=== PATIENT | female | born 1990 | race American Indian/Alaskan Native ===

== ENCOUNTER 2021-08-10 08:16 | Outpatient (CLI) | payer SELFPAY ==
[2021-08-10 11:18] LABS: Bilirubin,Urine NEG (Negative); Blood,Urine NEG (Negative); Color,Urine Straw (Yellow); Mucus,Urine FEW /HPF; Protein,Urine <15 mg/dL mg/dL (Negative); RBC,Urine < 1.0 /HPF (0.0-6.0); Urobilinogen,Urine < 2.0 mg/dL (<2.0); WBC,Urine < 1.0 /HPF (0.0-6.0)
[2021-08-10 12:45] VITALS: BP 100/62
[2021-08-10 13:02] LABS: Basophils # (Auto) 0.1 K/mm3 (0.0-0.1); Eosinophils % (Auto) 0.5 % (0.0-4.3); Hematocrit 34.1 % (30.3-42.9); Hemoglobin 11.3 gm/dl (10.1-14.3); Lymphocytes # (Auto) 2.2 K/mm3 (1.2-5.4); Lymphocytes % (Auto) 29.5 % (13.4-35.0); Mean Corpuscular HGB Conc 33 % (30-34); Mean Corpuscular Volume 86 fl (79-97); Monocytes # (Auto) 0.7 K/mm3 (0.0-0.8); Monocytes % (Auto) 9.6 % (0.0-7.3); Platelet Count 266 K/mm3 (140-440); Red Blood Count 3.98 M/mm3 (3.65-5.03); Red Cell Distribution Width 13.1 % (13.2-15.2)
--- NOTE | 2021-08-10 13:09 | Ultrasound Report ---
ULTRASOUND BIOPHYSICAL PROFILE OBSTETRIC ULTRASOUND, COMPLETE INDICATION: no care. COMPARISON: None available. FINDINGS: breathing movement = 2 Gross body movement = 2 tone = 2 Qualitative amniotic fluid volume = 2 Total biophysical score = 8/8 Amniotic fluid index is 17.3 cm. Presentation is Cephalic. heart rate is 147 beats per minute. bladder, diaphragm, heart, stomach, three-vessel cord, kidneys, and included intracranial struc tures are unremarkable. Spine and cord insertion were not well. Visualized measurements are as follows: Biparietal diameter 8.4 cm, 33 weeks 5 days Head circumference 30.6 cm, 34 weeks 1 day Abdominal circumference 29.4 cm, 33 weeks 3 days Femur length 7.1 cm, 36 weeks 1 day Estimated weight is 2396 g. No placental abnormalities are seen. There is a grade 1 anterior placenta. IMPRESSION: 1. biophysical profile = 11/06 2. Single viable intrauterine currently in vertex position with a estimated w eight of 2396 g (sonographic gestational age 34 weeks 3 days). Amniotic fluid index is within normal limits. Signer Name: Gerald Parry MD Signed: 08/10/2021 1:04 PM Workstation Name: [id number]
[2021-08-10 13:26] LABS: HCG,Quantitative 3332 mIU/mL (0-4); Hepatitis C Virus Antibody Non-Reactive (NonReactive)
== END 2021-08-10 15:00 | disposition home or self-care (01) ==
LOC: TRG 08:16 → APU 08:29 → TRG 15:00
PROVIDERS: ATTEND Obstetrics & Gynecology
DX: O26.893 Other specified pregnancy related conditions, third trimester (principal); R10.9 Unspecified abdominal pain; R51.9 Headache, unspecified; Z3A.37 37 weeks gestation of pregnancy
CPT/HCPCS: 36415; 59025; 76805; 76819; 81001; 84702; 85025; 86592; 86706; 86762; 86803; 87116; 87210; 87591; 87806

== ENCOUNTER 2021-08-11 13:23 | Inpatient (IN) | payer SELFPAY ==
[2021-08-11] MEDS ORDERED: ACETAMINOPHEN 325 MG TAB PO PRN (16:47)
[2021-08-11] MEDS ORDERED: ONDANSETRON 4 MG/2 ML INJ IV PRN (16:47)
[2021-08-11] MEDS ORDERED: miSOPROStol 200 MCG TAB PR PRN (16:47)
[2021-08-11] MEDS ORDERED: ePHEDrine SULFATE 50 MG/1 ML INJ IV PRN (16:47)
[2021-08-11] MEDS ORDERED: TERBUTALINE 1 MG/1 ML INJ SUB-Q PRN (16:47)
[2021-08-11] MEDS ORDERED: METHYLERGONOVINE MALEATE 0.2 MG/ML VIAL IM PRN (16:47)
[2021-08-11] MEDS ORDERED: LIDOCAINE (2%) 20 MG/1 ML VIAL 20 ML MDV INFILTRATI ONE (16:47)
[2021-08-11] MEDS ORDERED: BUTORPHANOL 2 MG/1 ML INJ IV PRN ×2 (16:47)
[2021-08-11] MEDS ORDERED: MINERAL OIL 30 ML ORAL LIQD PO PRN (16:47)
[2021-08-11] MEDS ORDERED: fentaNYL 100 MCG/2 ML INJ IV PRN (16:47)
[2021-08-11] MEDS ORDERED: AMPICILLIN/NS 2 GM/100 ML 2 GM/100 ML BAG IV ONE (16:47)
[2021-08-11] MEDS ORDERED: CARBOPROST TROMETHAMINE 250 MCG/1 ML INJ IM PRN (16:47)
[2021-08-11] MEDS ORDERED: LOPERAMIDE 2 MG CAP PO PRN (16:47)
[2021-08-11] MEDS ORDERED: NalbUPHINE 10 MG/1 ML INJ IV PRN (16:47)
[2021-08-11] MEDS ORDERED: OXYTOCIN 10 UNIT/1 ML INJ IM PRN (16:47)
[2021-08-11] MEDS ORDERED: OXYTOCIN DRIP 30 UNITS/500 ML BAG IV SCH ×2 (17:00)
[2021-08-11] MEDS ORDERED: LACTATED RINGERS 1,000 ML IV SCH (17:00)
--- NOTE | 2021-08-11 17:11 | History and Physical Report ---
History of Present Illness Date of examination: 08/11/21 Date of admission: 08/11/21 Chief complaint: Contractions; possible leaking of fluid from vagina. History of present illness: Was just notified of patient in triage; originally patient had been registered under a different provider/practice. 30 year old presents to L&D with complaint of contractions since yesterday. Reports possible leaking of fluid since 08:00 today. Denies vaginal bleeding. Patient states she receives care at [facility] office; made only one visit at [facility] and states it was yesterday. records are not available but they have been requested. LMP 11/24/20. EDC 08/31/21. Patient reports history of 2 vaginal births in the past. Reports uncomplicated except for one visit yesterday. Past History - Obstetrical History : 3 Medications and Allergies Allergies Allergy/AdvReac Type Severity Reaction Status Date / Time No Known Allergies Allergy Unverified 08/10/21 10:38 Active Meds: Active Medications Acetaminophen (Acetaminophen 325 Mg Tab) 650 mg PO Q4H PRN PRN Reason: Pain, Mild (1-3) Butorphanol Tartrate (Butorphanol 2 Mg/1 Ml Inj) 1 mg IV Q2H PRN PRN Reason: Pain, Moderate(4-6) LABOR PAIN Butorphanol Tartrate (Butorphanol 2 Mg/1 Ml Inj) 2 mg IV Q2H PRN PRN Reason: Pain , Severe (7-10) Carboprost Tromethamine (Carboprost Tromethamine 250 Mcg/1 Ml Inj) 250 mcg IM ONCE PRN PRN Reason: Uterine Bleeding Ephedrine Sulfate (Ephedrine Sulfate 50 Mg/1 Ml Inj) 10 mg IV Q2M PRN PRN Reason: Hypotension Fentanyl (Fentanyl 100 Mcg/2 Ml Inj) 100 mcg IV Q2H PRN PRN Reason: Pain,Severe (7-10) LABOR PAIN Oxytocin/Sodium Chloride (Pitocin/Ns 30 Unit/500ml) 30 units in 500 mls @ 2 ml s/hr IV TITR NANCY; Protocol Lactated Ringer's (Lactated Ringers) 1,000 mls @ 125 mls/hr IV DIRECT NANCY Oxytocin/Sodium Chloride (Pitocin/Ns 30 Unit/500ml) 30 units in 500 mls @ 40 mls/hr IV TITR NANCY; Protocol Ampicillin Sodium (Ampicillin/Ns 1 Gm/50 Ml) 1 gm in 50 mls @ 100 mls/hr IV Q4H NANCY; Protocol Ampicillin Sodium (Ampicillin/Ns 2 Gm/100 Ml) 2 gm in 100 mls @ 100 mls/hr IV ONCE ONE; Protocol Stop: 08/11/21 17:46 Loperamide HCl (Loperamide 2 Mg Cap) 2 mg PO ONCE PRN PRN Reason: give with Hemabate Methylergonovine Maleate (Methylergonovine Maleate 0.2 Mg/Ml Vial) 0.2 mg IM ONCE PRN PRN Reason: Uterine Bleeding Mineral Oil (Mineral Oil 30 Ml Oral Liqd) 30 ml PO QHS PRN PRN Reason: Constipation Misoprostol (Misoprostol 200 Mcg Tab) 800 mcg LA ONCE PRN PRN Reason: Uterine Bleeding Nalbuphine HCl (Nalbuphine 10 Mg/1 Ml Inj) 10 mg IV Q2H PRN PRN Reason: Pain, Moderate (4-6) Ondansetron HCl (Ondansetron 4 Mg/2 Ml Inj) 4 mg IV Q8H PRN PRN Reason: Nausea And Vomiting Oxytocin (Oxytocin 10 Unit/1 Ml Inj) 10 unit IM ONCE PRN PRN Reason: Uterine Bleeding Terbutaline Sulfate (Terbutaline 1 Mg/1 Ml Inj) 0.25 mg SUB-Q ONCE PRN PRN Reason: Hyperstimulation/Hypertonicity - Vital Signs Vital signs: Vital Signs Pulse Pulse Ox 91 H 100 08/11/21 15:07 08/11/21 15:07 Temp Pulse Resp BP Pulse Ox 86 94/62 100 08/11/21 17:02 08/11/21 16:48 08/11/21 17:02 Results All other labs normal.
[2021-08-11] MEDS ORDERED: BETAMET ACET/BETAMET NA PH 6 MG/ML INJ 5 ML MDV IM SCH (18:00)
[2021-08-11 18:28] LABS: Basophils % (Auto) 0.5 % (0.0-1.8); Eosinophils # (Auto) 0.1 K/mm3 (0.0-0.4); Eosinophils % (Auto) 0.8 % (0.0-4.3); Hematocrit 31.8 % (30.3-42.9); Hemoglobin 10.1 gm/dl (10.1-14.3); Lymphocytes # (Auto) 2.1 K/mm3 (1.2-5.4); Lymphocytes % (Auto) 30.3 % (13.4-35.0); Mean Corpuscular HGB Conc 32 % (30-34); Mean Corpuscular Volume 88 fl (79-97); Monocytes # (Auto) 0.8 K/mm3 (0.0-0.8); Platelet Count 246 K/mm3 (140-440); Red Blood Count 3.63 M/mm3 (3.65-5.03); Red Cell Distribution Width 13.3 % (13.2-15.2)
--- NOTE | 2021-08-11 20:35 | Ultrasound Report ---
ULTRASOUND BIOPHYSICAL PROFILE INDICATION: EDC/EGA, BIN, location/integrity placenta, EFW, pr. COMPARISON: 08/10/2021 FINDINGS: BREATHING MOVEMENT = 2 GROSS BODY MOVEMENT = 2 TONE = 2 QUALITATIVE AMNIOTIC FLUID VOLUME = 0 TOTAL BIOPHYSICAL SCORE = 6/8 AMNIOTIC FLUID INDEX (cm) = 1.6 PRESENTATION: Cephalic. HEART RATE (beats per minute): 148 IMPRESSION: 1. biophysical profile = 09/06 2. Oligohydramnios, new since yesterday Signer Name: Chaitanya Hutchinson MD Signed: 08/11/2021 8:30 PM Workstation Name: [id number]
--- NOTE | 2021-08-11 20:37 | Ultrasound Report ---
ULTRASOUND OBSTETRIC INDICATION / CLINICAL INFORMATION: EDC/EGA, BIN, location/integrity placenta, EFW, pr. Clinical Gestational Age (GA): 37.2 TECHNIQUE: Transabdominal. COMPARISON: 08/10/2021 OB ultrasound FINDINGS: There is a single intrauterine . Biparietal Diameter = 8.2 cm = 32 weeks, 6 day(s). Head Circumference = 30 cm = 33 weeks, 1 day(s). Abdominal Circumference = 29.1 cm = 33 weeks, 1 day(s). Femur Length = 6.7 cm = 34 weeks, 4 day(s). Average Ultrasound Age (AUA) = 33 weeks, 3 day(s). Heart Rate: 155 beats per minute. Estimated Weight in grams (if calculated): 2208 Estimated Weight Growth Percentile (if calculated): Position: cephalic. Cervix: closed. Length in cm (if measured): Placenta: Fundal left lateral, grade 3 and free of the os. Amniotic Fluid Volume: normal Amniotic Fluid Index (BIN) in cm (if calculated): 1.6. Maternal Adnexa: No significant abnormality. IMPRESSION: 1. Single, living intrauterine with estimated sonographic age of 33 weeks, 3 day(s). 2. Oligohydramnios Signer Name: Chaitanya Hutchinson MD Signed: 08/11/2021 8:33 PM Workstation Name: [id number]
[2021-08-11] MEDS ORDERED: AMPICILLIN/NS 1 GM/50 ML 1 GM/50 ML BAG IV SCH (21:00)
--- NOTE | 2021-08-12 00:17 | History and Physical Report ---
History of Present Illness Date of examination: 08/12/21 Date of admission: 08/11/21 16:47 Chief complaint: My water broke History of present illness: Patient is a 30-year-old 2 para 1 who presents today with complaint of spontaneous rupture of membranes. By patient's own report she has a due date of August 31, 2021 which would make her 37 weeks today however ultrasound on yesterday showed a estimated gestational age of 34 weeks. Patient has had no care and is recently emigrated to this country from [facility]. She does not understand or speak Japanese, so there is a significant language barrier. There are records. Patient reports leaking of fluid since 8 AM today 08/11 Past History Past Medical History: other (Unknown ) Past Surgical History: other (Unknown) Family/Genetic History: other (Unknown) - Obstetrical History Expected Date of Delivery: 08/31/21 Actual Gestation: 37 Week(s) 2 Day(s) : 3 Number of Living Children: 1 Medications and Allergies Allergies Allergy/AdvReac Type Severity Reaction Status Date / Time No Known Allergies Allergy Unverified 08/10/21 10:38 Active Meds: Active Medications Acetaminophen (Acetaminophen 325 Mg Tab) 650 mg PO Q4H PRN PRN Reason: Pain, Mild (1-3) Betamethasone Acet/Betameth SodPhos (Betamet Acet/Betamet Na Ph 6 Mg/Ml Inj 5 Ml Mdv) 12 mg IM Q24H NANCY Stop: 08/12/21 18:01 Last Admin: 08/11/21 17:34 Dose: 12 mg Butorphanol Tartrate (Butorphanol 2 Mg/1 Ml Inj) 1 mg IV Q2H PRN PRN Reason: Pain, Moderate(4-6) LABOR PAIN Butorphanol Tartrate (Butorphanol 2 Mg/1 Ml Inj) 2 mg IV Q2H PRN PRN Reason: Pain , Severe (7-10) Carboprost Tromethamine (Carboprost Tromethamine 250 Mcg/1 Ml Inj) 250 mcg IM ONCE PRN PRN Reason: Uterine Bleeding Ephedrine Sulfate (Ephedrine Sulfate 50 Mg/1 Ml Inj) 10 mg IV Q2M PRN PRN Reason: Hypotension Fentanyl (Fentanyl 100 Mcg/2 Ml Inj) 100 mcg IV Q2H PRN PRN Reason: Pain,Severe (7-10) LABOR PAIN Oxytocin/Sodium Chloride (Pitocin/Ns 30 Unit/500ml) 30 units in 500 mls @ 2 mls/hr IV TITR NANCY; Protocol Lactated Ringer's (Lactated Ringers) 1,000 mls @ 125 mls/hr IV DIRECT NANCY Oxytocin/Sodium Chloride (Pitocin/Ns 30 Unit/500ml) 30 units in 500 mls @ 40 mls/hr IV TITR NANCY; Protocol Ampicillin Sodium (Ampicillin/Ns 1 Gm/50 Ml) 1 gm in 50 mls @ 100 mls/hr IV Q4H NANCY; Protocol Loperamide HCl (Loperamide 2 Mg Cap) 2 mg PO ONCE PRN PRN Reason: give with Hemabate Methylergonovine Maleate (Methylergonovine Maleate 0.2 Mg/Ml Vial) 0.2 mg IM ON CE PRN PRN Reason: Uterine Bleeding Mineral Oil (Mineral Oil 30 Ml Oral Liqd) 30 ml PO QHS PRN PRN Reason: Constipation Misoprostol (Misoprostol 200 Mcg Tab) 800 mcg ND ONCE PRN PRN Reason: Uterine Bleeding Nalbuphine HCl (Nalbuphine 10 Mg/1 Ml Inj) 10 mg IV Q2H PRN PRN Reason: Pain, Moderate (4-6) Ondansetron HCl (Ondansetron 4 Mg/2 Ml Inj) 4 mg IV Q8H PRN PRN Reason: Nausea And Vomiting Oxytocin (Oxytocin 10 Unit/1 Ml Inj) 10 unit IM ONCE PRN PRN Reason: Uterine Bleeding Terbutaline Sulfate (Terbutaline 1 Mg/1 Ml Inj) 0.25 mg SUB-Q ONCE PRN PRN Reason: Hyperstimulation/Hypertonicity Review of Systems All systems: negative Constitutional: weight gain, fatigue Eyes: deferred Ears, nose, mouth and throat: deferred Breasts: deferred Gastrointestinal: abdominal pain Genitourinary: leakage of fluid, contractions - Vital Signs Vital signs: Vital Signs Pulse Pulse Ox 91 H 100 08/11/21 15:07 08/11/21 15:07 Temp Pulse Resp BP Pulse Ox 98.2 F 95 H 18 141/60 100 08/11/21 20:53 08/11/21 23:57 08/11/21 20:20 08/11/21 23:57 08/11/21 23:57 - Physical Exam Breasts: Positive: deferred Cardiovascular: Regular rate, Normal S1, Normal S2 Abdomen: Positive: normal appearance, soft, normal bowel sounds. Negative: distention, tenderness Genitourinary (Female): Positive: normal external genitalia Vulva: both: normal Vagina: Positive: normal moisture. Negative: discharge Cervix: Negative: lesion, discharge Uterus: Positive: normal size, normal contour Adnexa: both: normal Anus/Rectum: Positive: normal perianal skin, heme negative. Negative: rectal mass, hemorrhoids Extremities: Deep Tendon Reflex Grade: Normal +2 - Obstetrical FHR: auscultation normal Cervical Dilatation: 5 Cervical Effacement Percentage: 70 Uterine Contraction Pattern: Irregular Uterine Tone Measurement Phase: Contraction Uterine Contraction Intensity: Moderate Results Result Diagrams: 08/11/21 16:47 Abnormal lab results 08/11/21 08/11/21 Range/Units 16:25 16:47 RBC 3.63 L (3.65-5.03) M/mm3 Geary % (Auto) 12.0 H (0.0-7.3) % Membranes Rupture Positive A (Negative) All other labs normal. Assessment and Plan IUP with unknown exact gestational age here with spontaneous rupture membranes. Patient can be anywhere between 34 and 37 weeks. We will treat patient as a patient and initiate steroids and antibiotics. We will continue to [facility] for signs of labor and progression to active labor. Admit and monitor.
--- NOTE | 2021-08-12 00:20 | Event Note ---
Date: 08/12/21 Received call from nursing staff stating that patient was 7 cm and complaining of contractions. Will anticipate .
--- NOTE | 2021-08-12 00:22 | Procedure Note ---
OB Delivery Note - Vaginal Delivery presentation: vertex Delivery position: OA Intrapartum events: none, labor-<37 weeks, PROM->1hr before delivery Delivery induction: none Delivery monitor: external FHT, external uterine Route of delivery: Delivery placenta: spontaneous Delivery cord: 3 umbilical vessels Episiotomy: none Anesthesia: none Delivery comments: Viable female delivered over intact perineum after patient had progressed to 10 cm and began pushing. Infant had spontaneous cry. The cord was clamped and cut and she was handed to the waiting NICU personnel. The placenta was delivered spontaneously and intact with a three-vessel cord. There were no lacerations noted. Excellent hemostasis. Patient tolerated procedure well. - Infant A at 1 minute: 8 at 5 minutes: 9 Gender: Female (2470 g, 5 pounds 7 ounces)
[2021-08-12] MEDS ORDERED: MAGNESIUM HYDROXIDE (MOM) ORAL LIQD UDC PO PRN (01:59)
[2021-08-12] MEDS ORDERED: ONDANSETRON 4 MG/2 ML INJ IV PRN (01:59)
[2021-08-12] MEDS ORDERED: HYDROcodone/ACETAMINOPHEN 5-325 MG TAB PO PRN (01:59)
[2021-08-12] MEDS ORDERED: ACETAMINOPHEN 325 MG TAB PO PRN (01:59)
[2021-08-12] MEDS ORDERED: PROMETHAZINE 25 MG TAB PO PRN (01:59)
[2021-08-12] MEDS ORDERED: LANOLIN/ZINC/DIMETHICONE (LANSINOH) 7 GM TP PRN (01:59)
[2021-08-12] MEDS ORDERED: WITCH HAZEL/ GLYCERIN PAD TP PRN (01:59)
[2021-08-12] MEDS ORDERED: PROMETHAZINE 25 MG RECT SUPP PR PRN (01:59)
[2021-08-12] MEDS ORDERED: diphenhydrAMINE 25 MG CAP PO PRN (01:59)
[2021-08-12] MEDS: IBUPROFEN 600 MG TAB PO SCH ×2 (10:26→17:48)
[2021-08-12] MEDS: PRENATAL VIT27-FE FUMARATE-FOLIC ACID VIT TAB PO SCH (10:27)
[2021-08-12] MEDS: DOCUSATE SODIUM 100 MG CAP PO SCH (10:27)
[2021-08-12 12:54] LABS: Hematocrit 32.8 % (30.3-42.9); Hemoglobin 10.7 gm/dl (10.1-14.3)
[2021-08-13] MEDS: IBUPROFEN 600 MG TAB PO SCH ×4 (01:23→15:05)
[2021-08-13] MEDS: DOCUSATE SODIUM 100 MG CAP PO SCH ×2 (01:25→12:03)
[2021-08-13] MEDS: PRENATAL VIT27-FE FUMARATE-FOLIC ACID VIT TAB PO SCH (12:03)
--- NOTE | 2021-08-13 14:22 | Progress Note ---
Assessment and Plan PPD 1 s/p with no care at approximately 34-37 weeks gestation. Pt is doing well. Plan for discharge on today. Subjective - Subjective Date of service: 08/13/21 Interval history: Patient is a 30-year-old 2 para 1 who presents today with complaint of spontaneous rupture of membranes. By patient's own report she has a due date of August 31, 2021 which would make her 37 weeks today however ultrasound on yesterday showed a estimated gestational age of 34 weeks. Patient has had no care and is recently emigrated to this country from [facility]. She does not understand or speak Sinhala, so there is a significant language barrier. There are records. Patient reports leaking of fluid since 8 AM today 08/11 Patient reports: appetite normal, voiding normally, pain well controlled, flatus, ambulating normally : in NICU Objective - Vital Signs Latest vital signs: Vital Signs Temp Pulse Resp BP Pulse Ox Pulse Ox 08/13/21 08:00 100 08/13/21 07:57 97.6 F 70 18 94/59 100 08/13/21 00:33 98.0 F 67 18 93/58 100 08/12/21 21:25 100 08/12/21 17:11 98.3 F 86 18 97/66 100 Intake and Output 08/12/21 08/13/21 08/13/21 22:59 06:59 14:59 Intake Total 1200 120 720 Balance 1200 120 720 Intake: Oral 600 120 240 Intake, Free Water 600 480 Other: Total, Intake Amount 120 120 120 # Voids Void 1 1 2 - Exam Breasts: Present: deferred Cardiovascular: Present: Regular rate, Normal S1, Normal S2 Lungs: Present: Clear to auscultation, Normal air movement Abdomen: Present: normal appearance, soft, normal bowel sounds Uterus: Present: normal, firm Extremities: Present: normal
--- NOTE | 2021-08-13 14:25 | Discharge Summary ---
Providers - Providers Date of Admission: 08/11/21 16:47 Date of discharge: 08/13/21 Attending physician: MAR BE Primary care physician: MAR BE Hospitalization Reason for admission: active labor Delivery: complications: none Discharge diagnosis: delivery Radisson baby: female Hospital course: unremarkable Condition at discharge: Good Disposition: 01 HOME / SELF CARE / HOMELESS Plan - Discharge Medications Prescriptions: Ibuprofen [Motrin] 800 mg PO Q8HR PRN #40 tablet PRN Reason: Pain, Mild (1-3) - Provider Discharge Summary Activity: routine, no sex for 6 weeks, no heavy lifting 4 weeks, no strenuous exercise Diet: routine Instructions: routine Additional instructions: [] Smoking cessation referral if applicable(refer to patient education folder for contact #) [] Refer to [facility]'s [facility] Booklet Call your doctor immediately for: * Fever > 100.5 * Heavy vaginal bleeding ( >1 pad per hour) * Severe persistent headache * Shortness of breath * Reddened, hot, painful area to leg or breast * Drainage or odor from incision. * Keep incision clean and dry at all times and follow doctor's instructions regarding bathing/showering - Follow up plan Follow up: MAR BE MD [Primary Care Provider] - 6 Weeks
[2021-08-13 17:45] VITALS: BP 95/62
== END 2021-08-13 18:37 | disposition home or self-care (01) | DRG 805 ==
LOC: TRG 13:23 → APU 13:26 → UNDOADMIN 16:47 → APU 16:47 → TRG 17:07 → LD 18:21 → OB 08-12 01:40
PROVIDERS: ADMIT Obstetrics & Gynecology; ATTEND Obstetrics & Gynecology
PROC: 10E0XZZ Delivery of Products of Conception, External Approach (ICD-10-PCS; principal; 2021-08-12)
DX: O42.013 Preterm premature rupture of membranes, onset of labor within 24 hours of rupture, third trimester (principal); O60.14X0 Preterm labor third trimester with preterm delivery third trimester, not applicable or unspecified; Z37.0 Single live birth; Z3A.34 34 weeks gestation of pregnancy; Z20.822 Contact with and (suspected) exposure to COVID-19
CPT/HCPCS: 36415; 59025; 76815; 76816; 76819; 84112; 85014; 85018; 85025; 86592; 86706; 86762; 86850; 86900; 86901; 87806; 96360; G0378; J0290; J0702; U0003